=== PATIENT | female | born 1985 | race Caucasian/White ===

== ENCOUNTER 2020-09-08 17:34 | Emergency (ER) | payer SELFPAY ==
--- NOTE | 2020-09-08 17:46 | NUR ---
PT STATES SHE REFUSES TO BE TRIAGED UNTIL SHE FIGURES OUT HER INSURANCE SITUATION
--- NOTE | 2020-09-08 18:32 | NUR ---
PT LWBS, HOUSE SUP, ADMITTING, AND MD MADE AWARE.
== END 2020-09-08 18:32 | disposition left against medical advice (07) ==
LOC: MED 17:34
DX: Z53.21 Procedure and treatment not carried out due to patient leaving prior to being seen by health care provider (principal)

== ENCOUNTER 2020-11-19 19:00 | Observation (INO) | payer MEDICAID ==
[~2020-11-19] VITALS: Ht 154.9 cm; Wt 67.6 kg
== END 2020-11-19 20:35 | disposition home or self-care (01) ==
LOC: MLD 19:00
PROVIDERS: ADMIT Obstetrics & Gynecology; ATTEND Obstetrics & Gynecology
DX: O23.43 Unspecified infection of urinary tract in pregnancy, third trimester (principal); Z3A.28 28 weeks gestation of pregnancy
CPT/HCPCS: 87086; G0378; G0379